=== PATIENT | female | born 1970 | race Caucasian/White ===

== ENCOUNTER → 2020-04-05 11:33 | Outpatient (BNVA) | payer OTHER, SELFPAY | PROVIDERS: Family Provider Nurse Practitioner Family; PCP Nurse Practitioner Family; Visit Provider Registered Nurse | DX: Z20.828 Contact with and (suspected) exposure to other viral communicable diseases (principal) | CPT/HCPCS: 87635 ==

== ENCOUNTER 2020-07-09 11:26 | Outpatient (CLI) | payer OTHER, SELFPAY ==
--- NOTE | 2020-07-09 11:37 | MM_ITS ---
WS: [id number] BILATERAL SCREENING DIGITAL MAMMOGRAM WITH CAD HISTORY: Z12.39 - Encounter for other screening for malignant neoplasm of breast COMPARISON: 02/09/2016 and 01/26/2015 Bilateral CC and MLO views submitted. Computer aided detection analyzed. Breast composition: There are scattered areas of fibroglandular density. No suspicious masses, microc alcifications or architectural distortion. MM/[place] [id number] IMPRESSION: BI-RADS: 1-Negative FOLLOW UP: 1 Year Follow-up
== END 2020-07-09 11:27 | disposition home or self-care (01) ==
PROVIDERS: PCP Registered Nurse; Visit Provider Nurse Practitioner Women's Health
DX: Z12.31 Encounter for screening mammogram for malignant neoplasm of breast (principal); Z01.419 Encounter for gynecological examination (general) (routine) without abnormal findings
CPT/HCPCS: 77067; 88175

== ENCOUNTER 2020-12-24 09:29 | Outpatient (CLI) | payer OTHER, SELFPAY ==
--- NOTE | 2020-12-24 09:45 | CT_ITS ---
WS: [id number] CT HEAD TECHNIQUE: Noncontrast CT of the head obtained from the skullbase to the vertex. CLINICAL INFORMATION: R51.9 - Headache, unspecified COMPARISON: None. DLP: [address] scans at [facility] use at least one of these dose optimization techniques: automat ed exposure control; mA and/or kV adjustment per patient size (includes targeted exams where dose is matched to clinical indication); or iterative reconstruction. FINDINGS: No evidence of intracranial hemorrhage or mass effect. Ventricular system and basal cisterns are fisher nt. No extra-axial fluid collections. No evidence of mass or mass effect. Normal villagomez-white different iation. Paranasal sinuses and mastoid air cells are well aerated. Small amount of fluid in the left dependent sphenoid sinus. Normal visualized soft tissues. CT/CT head wo con* [id number] IMPRESSION: 1. No evidence of intracranial hemorrhage or mass effect. 2. Normal villagomez-white differentiation. 3. No acute intracranial findings.
== END 2020-12-24 09:30 | disposition home or self-care (01) ==
LOC: RADWPI 09:30
PROVIDERS: PCP Registered Nurse; Visit Provider Registered Nurse
DX: R51.9 Headache, unspecified (principal)
CPT/HCPCS: 70450

== ENCOUNTER → 2021-02-17 08:42 | Outpatient (BNVA) | payer OTHER, SELFPAY | PROVIDERS: PCP Registered Nurse; Visit Provider Specialist | DX: G43.711 Chronic migraine without aura, intractable, with status migrainosus (principal); M54.81 Occipital neuralgia | CPT/HCPCS: 64405; 64450; 99204; J1030; J3490 ==

== ENCOUNTER 2021-11-01 09:17 | Outpatient (CLI) | payer OTHER, SELFPAY ==
--- NOTE | 2021-11-01 09:29 | MM_ITS ---
WS: [id number] SCREENING 3D TOMOSYNTHESIS DIGITAL MAMMOGRAM WITH CAD HISTORY: SCREENING COMPARISON: 07/09/2020, 02/09/2016 and 01/26/2015 Bilateral CC and MLO views submitted. Computer aided detection analyzed. Breast composition: The breasts are heterogeneously dense, which may obscure small masses. Asymmetry and increasing distortion seen posteriorly LEFT CC central to the nipple, slice 43. On the lateral pr ojection this is just above the nipple line. There may be a few calcifications. This area is slightly more prominent on the CC projection as compared to the prior study. MM/[place] [id number] IMPRESSION: BI-RADS: 0-Incomplete: Need additional imaging evaluation FOLLOW UP: Need Additional Imaging LEFT breast: Spot compression views (CC and MLO). True ML. Ultrasound to follow if abnormality persists.
== END 2021-11-01 09:18 | disposition home or self-care (01) ==
PROVIDERS: PCP Registered Nurse; Visit Provider Registered Nurse
DX: Z12.31 Encounter for screening mammogram for malignant neoplasm of breast (principal)
CPT/HCPCS: 77063; 77067

== ENCOUNTER → 2021-11-10 09:38 | Outpatient (BNVA) | payer OTHER, SELFPAY | PROVIDERS: PCP Registered Nurse; Visit Provider Registered Nurse | DX: I10 Essential (primary) hypertension (principal); E78.5 Hyperlipidemia, unspecified; F41.8 Other specified anxiety disorders; Z12.11 Encounter for screening for malignant neoplasm of colon; Z00.00 Encounter for general adult medical examination without abnormal findings | CPT/HCPCS: 80053; 80061; 82306; 82607; 84443; 85007; 85025 ==

== ENCOUNTER 2021-11-23 14:35 | Outpatient (CLI) | payer OTHER, SELFPAY ==
--- NOTE | 2021-11-23 14:44 | MM_ITS ---
WS: [id number] ADDITIONAL VIEWS LEFT MAMMOGRAM with tomosynthesis. LEFT BREAST ULTRASOUND HISTORY: Follow up screening mammogram. COMPARISON: 11/01/2021, 07/09/2020 LEFT MAMMOGRAM: Spot compression views and true ML with tomosynthesis and sympathetic mammography. Asymmetry persists in the posterior central LEFT breast near 12:00. Nearly completely resolves with a dditional imaging, probably benign.. Will ultrasound this area. LEFT BREAST ULTRASOUND 2-D and color Doppler imaging submitted. Ultrasound directed LEFT breast from 11-1 o'clock. No abnormality is identified. No shadowing or mass . MM/[place] [id number] IMPRESSION: BI-RADS: 2-Benign FOLLOW UP: 1 Year Follow-up
== END 2021-11-23 14:36 | disposition home or self-care (01) ==
LOC: RAD 14:37
PROVIDERS: PCP Registered Nurse; Visit Provider Registered Nurse
DX: R92.8 Other abnormal and inconclusive findings on diagnostic imaging of breast (principal)
CPT/HCPCS: 76642; 77061

== ENCOUNTER → 2021-11-24 11:42 | Outpatient (BNVA) | payer OTHER, SELFPAY | PROVIDERS: PCP Registered Nurse; Visit Provider Registered Nurse | DX: D70.9 Neutropenia, unspecified (principal) | CPT/HCPCS: 85007; 85027 ==

== ENCOUNTER → 2021-11-30 09:15 | Outpatient (BNVA) | payer OTHER, SELFPAY | PROVIDERS: PCP Registered Nurse; Visit Provider Registered Nurse | DX: N95.1 Menopausal and female climacteric states (principal); I10 Essential (primary) hypertension; M54.81 Occipital neuralgia; D70.9 Neutropenia, unspecified | CPT/HCPCS: 85007; 85027; 85651; 86141; 87798 ==

== ENCOUNTER 2022-01-23 09:10 | Outpatient (CLI) | payer OTHER, SELFPAY ==
--- NOTE | 2022-01-23 09:15 | US_ITS ---
WS: [id number] ULTRASOUND SOFT TISSUES LEFT thorax. HISTORY: R22.2 - Localized swelling, mass and lump, trunk COMPARISON: None available. TECHNIQUE: 2-D and color Doppler imaging is submitted. Patient directed scourer to the palpable mass. There is an ovoid homogeneous hypoechoic mass in the LEFT shoulder as directed by the patient measuri ng 2.6 x 1.0 x 2.0 cm. Nonvascular nonaggressive appearing. US/US chest [id number] IMPRESSION: Soft tissue mass adjacent to the LEFT shoulder measures 2.6 x 1.0 x 2.0 cm. Mos t consistent with a lipoma.
== END 2022-01-23 09:11 | disposition home or self-care (01) ==
LOC: RAD 09:10
PROVIDERS: PCP Registered Nurse; Visit Provider Nurse Practitioner Women's Health
DX: R22.2 Localized swelling, mass and lump, trunk (principal)
CPT/HCPCS: 76604

== ENCOUNTER 2022-03-02 07:59 | Day surgery (SDC) | payer OTHER, SELFPAY ==
[2022-02-28 13:30] VITALS: BMI 30.9
[2022-03-02 08:13] VITALS: BP 126/76; PULSE 77; RESP 18; TEMP 36.2; O2SAT 97
[2022-03-02] MEDS: sodium chloride 0.9% 1,000 ML 30 ML IV (08:22)
--- NOTE | 2022-03-02 08:33 | W.PM.OPSFHP ---
Same Day Surgery H&P Indication for Procedure/HPI DATE OF PROCEDURE: March 02, 2022 CHIEF COMPLAINT/INDICATIONFOR SURGICAL PROCEDURE: Screening colonoscopy PREOP DIAGNOSIS: Screening colonoscopy PLANNED PROCEDURE: Operation Date: 03/02/22 10:00 Proposed Procedures p Colonoscopy 62700/z12.11(Not Applicable) - Angel Bruno MD This is a pleasant 51 years old female patient. Had a colonoscopy 15 years ago and was within normal limits. Denies bleeding per rectum or history of colon cancer. She is referred to my practice for screening colonoscopy. ROS All systems have been reviewed negative except as for the above or per problem list. Medications/Allergies* Home Medications Medication Instructions Recorded Confirmed Type cetirizine 10 mg capsule (Zyrtec) 10 mg PO DAILY PRN Allergy Symptoms 11/10/21 03/02/22 History Allergies/Adverse Reactions Allergy/AdvReac Type Severity Reaction Status Date / Time atorvastatin Allergy Mild hives Verified 03/02/22 09:06 Penicillins Allergy Mild hives Verified 03/02/22 09:06 Sulfa (Sulfonamide Allergy Mild hives Verified 03/02/22 09:06 Antibiotics) Current Medications: Generic Name Dose Route Start Last Admin Trade Name Freq PRN Reason Stop Dose Admin Sodium Chloride 1,000 mls @ 30 mls/hr 03/02/22 08:15 03/02/22 08:22 Sodium Chloride 0.9% IV 03/03/22 08:14 30 mls/hr .Q24H RIGOBERTO Administration Pertinent History/Comorbid Conditions* Medical History (Updated 02/21/22 @ 13:00 by DIDI Tavera) Depression with anxiety Essential hypertension No pertinent past medical history neghx: dm,thyroid,dvt/pe Seasonal allergies Surgical History (Updated 07/09/20 @ 09:17 by Blessing Pierce APN, WHNP) History of surgery on wrist (~1991) R wrist-- tendon release Hx of tubal ligation Family History (Updated 01/05/22 @ 14:16 by Gill Aguayo) Ovarian cancer Mother dx age 40's Heart disease Mother Hypercholesteremia Mother Breast cancer Family/Other Paternal Aunt ---- dx age 60s Cousin Paternal x 2--- dx age 20s and unknown Stroke Brother Denies family history of Colon cancer Diabetes Hypertension Uterine cancer Thyroid disease Social History Smoking and tobacco status: never smoked Alcohol intake: never Adopted: No Caregiver/support person: No Lives independently: No Household members: spouse Marital status: service: No Current occupational status: employed Sexually active: Yes Current gender identity: Female Pertinent Exam Findings alert, oriented x 3, clear to auscultation bilaterally, regular rate & rhythm and procedure specific exam findings (Abdominal examination nontender nondistended soft) Recommendations Surgery/Procedure today (Colonoscopy with possible biopsy) Other Plans: Plan of care; After thorough history and physical examination and reviewing the chart, plan to perform screening colonoscopy. I discussed with the patient in details the risks,benefits,alternatives and indications.The risk of aspiration, bleeding, soft tissue injury, perforation of the colon and other potential concomitant complications were explained to the patient in details,also the potential need for Laproscoy/Laparotomy to repair any related complications including but not limited to colectomy and or Closotomy.The patient understood this well and did agree to proceed. Rationale was carefully and clearly discussed with the patient.Appropriate informed consent have been reviewed and signed All questions have been answered and all concerns have been addressed to patient's satisfaction. Verbal and written Instructions were given to the patient for colonoscopy prep Coding Level of Care Code Acute Foreclosure Specialist for Mayo Jimenez
--- NOTE | 2022-03-02 08:59 | ANES.PREANE2 ---
Pre-Anesthetic Assessment Height/Weight: Height 1.63 m Weight 81.647 kg Temp Pulse Resp BP Pulse Ox O2 Del Method 97.1 F L 77 18 126/76 97 03/02/22 08:13 03/02/22 08:13 03/02/22 08:13 03/02/22 08:13 03/02/22 08:13 03/02/22 08:13 Preop Diagnosis: Screening colonoscopy Operation Date: 03/02/22 10:00 Proposed Procedures p Colonoscopy 37751/z12.11(Not Applicable) - Angel Bruno MD Familial anesthetic complications: None Was Beta Kirstie taken within 24 hours: N/A Was Clonidine taken within 24 hours: N/A Last intake: Intake Last Liquid Date 03/01/22 Last Liquid Time 22:30 Last Solid Date 02/28/22 Last Solid Time 19:00 Social No alcohol and No tobacco Exam alert, oriented x 3, clear to auscultation bilaterally and regular rate & rhythm Airway Submandibular: within normal limits Cervical ROM: within normal limits Mallampati: Class I Dentition: full History/ROS No significant complaints Pulmonary None reported CV/HEM Hypertension Dyspareunia Hepatic None reported GI None reported Metabolic Hyperlipidemia [facility] None reported Neuropsych Anxiety and Depression Occipital neuralgia Anesthetic Plan ASA status: 2 Anesthesia: Anesthesia Evaluation, General and MAC Other: I discussed with the patient risks, goals, and benefits of MAC and general anesthesia. We discussed spectrum of MAC anesthesia including conversion to general as well as possibility of recall of intraoperative stimuli including discomfort/pain. Patient agrees to proceed with MAC. Risk of > 500 ml blood loss (7ml/kg in children): No Medications/Allergies Home Medications Medication Instructions Recorded Confirmed Last Taken Type bupropion HCl 150 mg tablet,12 hr See Rx Instructions .Route 03/08/21 03/02/22 03/01/22 Rx sustained-release .COMPLEX #180 tabs pseudoephedrine HCl 30 mg tablet 30 mg PO BID 7 days #14 tabs 10/10/21 03/02/22 03/01/22 Rx (Sudafed) cetirizine 10 mg capsule (Zyrtec) 10 mg PO DAILY PRN Allergy Symptoms 11/10/21 03/02/22 03/01/22 History conjugated estrogens 0.625 mg/gram 0.3125 mg vaginal .twice weekly 07/01/2003/02/22 02/27/22 Rx vaginal cream (Premarin) #30 grams estradiol 0.5 mg tablet 0.5 mg PO QDAY #90 tabs 01/05/22 03/02/22 03/01/22 Rx medroxyprogesterone 2.5 mg tablet 2.5 mg PO DAILY #90 tabs 01/05/22 03/02/22 03/01/22 Rx (Provera) galcanezumab-gnlm 120 mg/mL 120 mg SUBCUT ONCE #1 mL 02/01/22 03/02/22 02/16/22 Rx subcutaneous pen injector (Emgality Pen) citalopram 20 mg tablet See Rx Instructions .Route 02/10/22 03/02/22 03/01/22 Rx .COMPLEX #180 tabs montelukast 10 mg tablet See Rx Instructions .Route 02/10/22 03/02/22 03/01/22 Rx .COMPLEX #90 tabs Allergies Allergy/AdvReac Type Severity Reaction Status Date / Time atorvastatin Allergy Mild hives Verified 03/02/22 08:11 Penicillins Allergy Mild hives Verified 03/02/22 08:11 Sulfa (Sulfonamide Allergy Mild hives Verified 03/02/22 08:11 Antibiotics) Current Medications Generic Name Dose Route Start Last Admin Trade Name Freq PRN Reason Stop Dose Admin Sodium Chloride 1,000 mls @ 30 mls/hr 03/02/22 08:15 03/02/22 08:22 Sodium Chloride 0.9% IV 03/03/22 08:14 30 mls/hr .Q24H RIGOBERTO Administration PFSH Anesthesia Medical History Depression with anxiety Essential hypertension No pertinent past medical history neghx: dm,thyroid,dvt/pe Seasonal allergies Surgical History History of surgery on wrist (~1991) R wrist-- tendon release Hx of tubal ligation Family History Mother Heart disease Ovarian cancer dx age 40's Hypercholesteremia Family/Other Breast cancer Paternal Aunt ---- dx age 60s Cousin Paternal x 2--- dx age 20s and unknown Brother Stroke Denies family history of Colon cancer Diabetes Hypertension Uterine cancer Thyroid disease Social History Smoking and tobacco status: never smoked Alcohol intake: never Adopted: No Caregiver/support person: No Lives independently: No Household members: spouse Marital status: service: No Current occupational status: employed Sexually active: Yes Current gender identity: Female Data Anesthesia Cardiac Studies: No Data to Display
[2022-03-02 09:49] VITALS: BP 91/57; PULSE 68; RESP 12; TEMP 36.6; O2SAT 98
[2022-03-02 09:59] VITALS: BP 95/61; PULSE 66; RESP 16; O2SAT 98
--- NOTE | 2022-03-02 15:13 | ANE.PACU2 ---
Inpatient post-anesthesia follow up: Airway intact: Yes Vital signs: Temperature 97.8 F Pulse Rate 66 Respiratory Rate 16 Blood Pressure 95/61 Pulse Oximetry 98 Oxygen Delivery Me thod Room Air Oxygen Flow Rate Fraction of Inspir ed Oxygen Hydration adequate: Yes Nausea and vomiting: No Pain level: 1 Mental status: Baseline
== END 2022-03-02 10:13 | disposition home or self-care (01) ==
PROVIDERS: PCP Registered Nurse; Visit Provider Surgery
PROC: 0DJD8ZZ Inspection of Lower Intestinal Tract, Via Natural or Artificial Opening Endoscopic (ICD-10-PCS; CPT 45378; principal; 2022-03-02 10:00)
DX: Z12.11 Encounter for screening for malignant neoplasm of colon (principal); I10 Essential (primary) hypertension; Z88.0 Allergy status to penicillin; Z88.2 Allergy status to sulfonamides
CPT/HCPCS: 45378; J2704; J7030

== ENCOUNTER → 2022-12-11 08:51 | Outpatient (BNVA) | payer OTHER, SELFPAY | PROVIDERS: PCP Family Medicine; Visit Provider Family Medicine | DX: F41.8 Other specified anxiety disorders (principal); M19.041 Primary osteoarthritis, right hand; M19.042 Primary osteoarthritis, left hand; I10 Essential (primary) hypertension; Z12.31 Encounter for screening mammogram for malignant neoplasm of breast; G47.10 Hypersomnia, unspecified; Z13.6 Encounter for screening for cardiovascular disorders | CPT/HCPCS: 80053; 80061; 84443; 85025 ==

== ENCOUNTER → 2022-12-18 11:15 | Outpatient (BNVA) | payer OTHER, SELFPAY | PROVIDERS: PCP Family Medicine; Visit Provider Family Medicine | DX: R79.89 Other specified abnormal findings of blood chemistry (principal); E03.9 Hypothyroidism, unspecified | CPT/HCPCS: 84436 ==

== ENCOUNTER 2023-01-08 08:49 | Outpatient (CLI) | payer OTHER, SELFPAY ==
--- NOTE | 2023-01-08 08:57 | MM_ITS ---
WS: [id number] BILATERAL SCREENING DIGITAL TOMOSYNTHESIS MAMMOGRAM WITH CAD HISTORY: screening mammogram COMPARISON: 11/23/2021, 11/01/2021 and 07/09/2020 Bilateral CC and MLO views with tomosynthesis and synthetic mammography submitted. Computer aided det ection analyzed. Breast composition: There are scattered areas of fibroglandular density. No suspicious masses, microc alcifications or architectural distortion. MM/[place] [id number] IMPRESSION: BI-RADS: 1-Negative FOLLOW UP: 1 Year Follow-up
== END 2023-01-08 08:50 | disposition home or self-care (01) ==
LOC: RAD 08:51
PROVIDERS: PCP Family Medicine; Visit Provider Family Medicine
DX: Z12.31 Encounter for screening mammogram for malignant neoplasm of breast (principal); I10 Essential (primary) hypertension
CPT/HCPCS: 77063; 77067; 80048; 80053; 80061; 84443; 85025

== ENCOUNTER 2023-01-15 09:00 | Outpatient (CLI) | payer OTHER, SELFPAY | END 2023-01-15 09:01 | disposition home or self-care (01) | LOC: SLEEP 01-16 11:12 | PROVIDERS: PCP Family Medicine; Visit Provider Family Medicine | DX: G47.10 Hypersomnia, unspecified (principal); G47.33 Obstructive sleep apnea (adult) (pediatric) | CPT/HCPCS: G0399 ==

== ENCOUNTER → 2023-02-14 08:20 | Outpatient (BNVA) | payer OTHER, SELFPAY | PROVIDERS: PCP Family Medicine; Visit Provider Family Medicine | DX: M65.4 Radial styloid tenosynovitis [de Quervain] (principal); E78.5 Hyperlipidemia, unspecified; E03.9 Hypothyroidism, unspecified; I10 Essential (primary) hypertension | CPT/HCPCS: 84439; 84443 ==

== ENCOUNTER → 2023-09-06 08:59 | Outpatient (BNVA) | payer OTHER, SELFPAY | PROVIDERS: PCP Family Medicine; Visit Provider Family Medicine | DX: E78.5 Hyperlipidemia, unspecified (principal); E03.9 Hypothyroidism, unspecified | CPT/HCPCS: 80053; 80061; 84443 ==

== ENCOUNTER → 2023-11-13 11:57 | Outpatient (BNVA) | payer OTHER, SELFPAY | PROVIDERS: PCP Family Medicine; Visit Provider Nurse Practitioner Women's Health | DX: N95.0 Postmenopausal bleeding (principal) | CPT/HCPCS: 76830 ==

== ENCOUNTER → 2024-02-26 15:52 | Outpatient (BNVA) | payer OTHER, SELFPAY | PROVIDERS: PCP Family Medicine; Visit Provider Nurse Practitioner Women's Health | DX: Z01.419 Encounter for gynecological examination (general) (routine) without abnormal findings (principal) | CPT/HCPCS: 87624 ==

== ENCOUNTER 2024-03-19 08:51 | Outpatient (CLI) | payer OTHER, SELFPAY ==
--- NOTE | 2024-03-19 08:58 | MM_ITS ---
WS: [id number] BILATERAL SCREENING DIGITAL TOMOSYNTHESIS MAMMOGRAM WITH CAD HISTORY: Z12.39 - Encounter for other screening for malignant neop... COMPARISON: 01/08/2023, 11/23/2021 and 11/01/2021 Bilateral CC and MLO views with tomosynthesis and synthetic mammography submitted. Computer aided det ection analyzed. Breast composition: There are scattered areas of fibroglandular density. No suspicious masses, microc alcifications or architectural distortion. Asymmetries are stable and within each breast. MM/MM [facility] tomosynthesis [id number] IMPRESSION: BI-RADS: 2 - Benign. FOLLOW UP: 1 Year Follow-up
== END 2024-03-19 08:52 | disposition home or self-care (01) ==
PROVIDERS: PCP Family Medicine; Visit Provider Family Medicine
DX: Z12.31 Encounter for screening mammogram for malignant neoplasm of breast (principal); R92.323 Mammographic fibroglandular density, bilateral breasts; N64.89 Other specified disorders of breast
CPT/HCPCS: 77063; 77067

== ENCOUNTER → 2024-04-23 11:18 | Outpatient (BNVA) | payer OTHER, SELFPAY | PROVIDERS: PCP Family Medicine; Visit Provider Family Medicine | DX: I10 Essential (primary) hypertension (principal); E78.5 Hyperlipidemia, unspecified; E03.9 Hypothyroidism, unspecified | CPT/HCPCS: 80053; 80061; 84443 ==

== ENCOUNTER 2024-05-13 09:37 | Day surgery (SDC) | payer OTHER, SELFPAY ==
[2024-05-05 09:41] LABS: Basophils # 0.1 10^3/uL (0.0-0.1); Basophils % 1.6 %; Eosinophils # 0.2 10^3/uL (0.0-0.8); Eosinophils % 2.6 %; Hematocrit 42.9 % (36-47); Lymphocytes # 2.8 10^3/uL (0.8-4.8); Lymphocytes % 40.2 %; Mean Corpuscular HGB Conc 33.3 g/dL (30-55); Mean Corpuscular Hemoglobin 31.7 pg (27-33); Mean Corpuscular Volume 95.1 fl (85-98); Mean Platelet Volume 9.5 fL (7.4-10.4); Monocytes # 0.5 10^3/uL (0.2-0.9); Monocytes % 6.5 %; Neutrophils # 3.37 10^3/uL (1.8-7.7); Nucleated Red Blood Cells % 0 %; Platelet Count 259 10^3/cmm (157-399); Red Blood Count 4.51 10^6/uL (3.85-5.65); White Blood Count 6.89 10^3/uL (3.29-11.43)
--- NOTE | 2024-05-05 09:41 | P.ANESASSM_ITS ---
Pre-Anesthetic Assessment Height/Weight: Height 1.63 m Preop Diagnosis: Postmenopausal bleeding, endometrial polyp Operation Date: 05/13/24 11:25 Proposed Procedures p Hysteroscopy w/ Myosure 99328,96801,N95.0, N84.0(Not Applicable) - Sridhar De La Garza MD s Dilation And Curettage (D&C)(Not Applicable) - Sridhar De La Garza MD Familial anesthetic complications: None Social No alcohol and No tobacco Exam alert, oriented x 3, clear to auscultation bilaterally and regular rate & rhythm Airway Mallampati: Class I Dentition: full CV/HEM Hypertension Metabolic Thyroid Disease Anesthetic Plan ASA status: 2 Anesthesia: General Risk of > 500 ml blood loss (7ml/kg in children): No Medications/Allergies Home Medications Medication Instructions Recorded Confirmed Last Taken Type cetirizine 10 mg capsule (Zyrtec) 10 mg PO DAILY PRN Allergy Symptoms 11/10/21 05/05/24 05/05/24 History aripiprazole 2 mg tablet (Abilify) 2 mg PO DAILY #90 tabs 12/09/23 05/05/24 05/05/24 Rx citalopram 40 mg tablet 40 mg PO DAILY #90 tabs 12/09/23 05/05/24 05/05/24 Rx hydrochlorothiazide 25 mg tablet 25 mg PO QAM #90 tabs 12/09/23 05/05/24 05/05/24 Rx levothyroxine 25 mcg tablet 25 mcg PO DAILY #90 tabs 12/09/23 05/05/24 05/05/24 Rx meloxicam 15 mg tablet 15 mg PO DAILY #90 tabs 12/09/23 05/05/24 05/05/24 Rx estradiol 0.01% (0.1 mg/gram) 1 g vaginal .2-3 times weekly 02/26/24 05/05/24 05/05/24 Rx vaginal cream (Estrace) #42.5 grams estradiol 1 mg tablet (Estrace) 1 mg PO DAILY #90 tabs 02/26/24 05/05/24 05/05/24 Rx progesterone micronized 100 mg 200 mg (2 x 100 mg) PO BEDTIME 02/26/24 05/05/24 05/05/24 Rx capsule (Prometrium) #180 caps semaglutide 1 mg/dose (4 mg/3 mL) 1 mg SUBCUT Q7D 04/23/24 05/05/24 05/03/24 History subcutaneous pen injector ezetimibe 10 mg tablet (Zetia) 10 mg PO DAILY #90 tabs 04/29/24 05/05/24 05/05/24 Rx bupropion HCl 300 mg 24 hr tablet, 300 mg PO DAILY 05/05/24 05/05/24 05/05/24 History extended release Allergies Allergy/AdvReac Type Severity Reaction Status Date / Time atorvastatin Allergy Mild hives Verified 05/05/24 09:05 Penicillins Allergy Mild hives Verified 05/05/24 09:05 Sulfa (Sulfonamide Allergy Mild hives Verified 05/05/24 09:05 Antibiotics) topiramate AdvReac ADR-Muscle Verified 05/05/24 09:05 Pain PFS Anesthesia Medical History Osteoarthritis Major depressive disorder Dyslipidemia Hypothyroidism (acquired) Mass of chest wall, left lipoman Occipital neuralgia Essential hypertension Seasonal allergies Surgical History History of bilateral tubal ligation Normal colonoscopy History of surgery on wrist (~1991) R wrist-- tendon release Family History Mother Heart disease Hypercholesteremia Cancer cervical cancer Family/Other Breast cancer Paternal Aunt ---- dx age 60s Cousin Paternal x 2--- dx age 20s and unknown Brother Stroke Parkinson disease Sister Dementia, Onset Age: 65 Father Esophageal cancer Grandmother Diabetes Denies family history of Colon cancer Hypertension Uterine cancer Thyroid disease Social History Smoking and tobacco/nicotine status: never used tobacco/nicotine Alcohol intake: never Substance/Drug Use: never Household members: spouse Marital status: Current occupational status: employed Current occupation: tanning salon attendant Special britt needs: No Agree to transfusion: Yes Data Anesthesia 05/05/24 09:30 05/05/24 09:30 Cardiac Studies: 2 No Data to Display
[2024-05-05 09:48] LABS: Bilirubin Urine Negative (Negative); Blood Urine Non-haemolysed trace (Negative); Glucose Urine UA Negative (Normal); Ketones Urine Negative (Negative); Leukocyte Esterase Urine Trace (Negative); Nitrate Urine Negative (Negative); Protein Urine Negative (Negative); Urine Appearance Cloudy (CLEAR); Urine Color Yellow (Yellow); Urobilinogen Urine 0.2 mg/dL (Negative); pH Urine 5.5 (5-7)
[2024-05-05 09:53] LABS: Add Urine Microscopic? YES; Bacteria Urine None Seen /hpf; Hyaline Casts Urine 0-4 /lpf; RBC Urine 0-2 /hpf (0-2)
[2024-05-05 10:03] LABS: Add Urine Culture? No
[2024-05-05 10:06] LABS: Alanine Aminotransferase 27 U/L (0-33); Albumin Level 4.4 g/dL (3.5-5.2); Alkaline Phosphatase 44 U/L (35-105); Aspartate Amino Transferase 23 U/L (0-32); Blood Urea Nitrogen 18 mg/dL (6-20); Calcium 8.8 mg/dL (8.5-10.5); Carbon Dioxide 27 mmol/L (22-29); Chloride 104 mmol/L (98-107); Globulin 2.8 g/dL (1.3-4.6); Glomerular Filtration Rate 65.8 mL/min (90-130); Glucose 85 mg/dL (65-115); Osmolality Calculated 291 mOsm/kg (285-295); Sodium 140 mmol/L (136-145); Total Bilirubin 0.5 mg/dL (0.15-1.2); Total Protein 7.2 g/dL (6.6-8.7)
[2024-05-13] VITALS (11 sets, daily range): BP systolic 100–129; BP diastolic 64–86; PULSE 66–96; RESP 13–20; TEMP 36.5–36.8; O2SAT 93–98; BMI 32.2
--- NOTE | 2024-05-13 10:15 | W.PM.OPSUD ---
Surgery/Procedure H&P Update DATE OF PROCEDURE: May 13, 2024 DATE H&P PERFORMED: 05/05/24 H&P UPDATE INFORMATION: I have reviewed H&P completed within last 30 days, I have examined patient prior to procedure and No changes to prior documentation PREOP DIAGNOSIS: Postmenopausal bleeding, endometrial polyp PLANNED PROCEDURE: Operation Date: 05/13/24 11:25 Proposed Procedures p Hysteroscopy w/ Myosure 88189,85338,N95.0, N84.0(Not Applicable) - Sridhar De La Garza MD s Dilation And Curettage (D&C)(Not Applicable) - Sridhar De La Garza MD
[2024-05-13] MEDS: scopolamine 1.5 Patch 1 PATCH TRANSDERMA (10:17)
[2024-05-13] MEDS: sodium chloride 0.9% 500 ML IV (10:17)
[2024-05-13] MEDS: metroNIDAZOLE IV 500 MG/100 ML PREMIX 100 MG IV (10:24)
[2024-05-13 10:31] LABS: OR HCG Qualitative Urine Negative (Negative)
--- NOTE | 2024-05-13 10:35 | P.ANESUD_ITS ---
Pre-Anesthetic Update Pre-Anesthetic Assessment: Date of Surgery/Procedure: 05/13/24 Preop Sarah gnosis: Postmenopausal bleeding, endometrial polyp Proposed Procedure: Operation Date: 05/13/24 11:25 Proposed Procedures p Hysteroscopy w/ Myosure 79534,11217,N95.0, N84.0(Not Applicable) - Sridhar De La Garza MD s Dilation And Curettage (D&C)(Not Applicable) - Sridhar De La Garza MD Changes from Pre-Anesthetic Assessment: No changes since prior assessment. Denies any cardiac or pulmonary issues Plan for general anesthesia Last Intake: Intake Last Liquid Date 05/12/24 Last Liquid Time 20:00 Last Solid Date 05/12/24 Last Solid Time 18:00 Vitals: Temperature 97.7 F 05/13/24 09:54 Temperature Source Temporal Artery S can 05/13/24 09:54 Pulse Rate 66 05/13/24 09:54 Pulse Rhythm Regular 05/13/24 10:01 Pulse Strength 3+ Normal 05/13/24 10:01 Respiratory Rate 18 05/13/24 09:54 Blood Pressure 129/81 05/13/24 09:54 Blood Pressure Vanessa n 97 05/13/24 09:54 Pulse Oximetry 97 05/13/24 09:54 Oxygen Delivery Me thod Room Air 05/13/24 10:01 Cardiac Studies: No Data to Display
[2024-05-13] MEDS: sodium chloride 0.9% 1,000 ML 30 ML IV (11:06)
[2024-05-13] MEDS: VANCOMYCIN ADD-Vantage 1,000 MG in 0.9% NaCl ADD-Vantage 250 ML 250 MG IV (11:07)
--- NOTE | 2024-05-13 11:53 | PM.OP ---
Operative Report Date of procedure: May 13, 2024 Pre-op diagnosis: Postmenopausal bleeding Endometrial polyp Post-op diagnosis: Postmenopausal bleeding Procedure done: Hysteroscopy Dilation and curettage via MyoSure Surgeon: Sridhar De La Garza MD Estimated blood loss (mL): 5 IV fluids (mL): 400 Procedure: After informed consent, the risks included but were not limited to bleeding, infection, injury to internal organs. The patient was counseled on a possible laparotomy and on the potential need for hysterectomy. The patient expressed understanding of the risks involved, all questions were answered, and the patient consented to the procedure. The patient was taken to the operating room where general anesthesia was administered. She was placed in the dorsal lithotomy position and prepped and draped in sterile fashion. A time out procedure was performed. The patient was examined under anesthesia and found to have a normal uterus with normal adnexa. A sterile weight speculum was placed in the vagina. The uterus was then gently sounded to 7 cm, and the cervix was dilated. The 0 degrees MyoSure hysteroscope was advanced gently to the uterine fundus while visualizing the monitor. Survey of the uterine cavity showed: Atrophic endometrium, the fundus shows atrophic endometrium; left ostium was visualized, and lateral wall with atrophic endometrium; right ostium visualized, and lateral wall with atrophic in the mid; anterior and posterior harley are with atrophic endometrium; endocervical canal is normal. The MyoSure device was advanced and the direct visualization the endometrium was morcellated without complication. At the end of morcellation the fluid deficit was 125 mL and was estimated at approximately 100 mL were on the floor. There was minimal bleeding noted and the tenaculum removed with goad hemostasis noted. The patient tolerated the procedure well. The patient was taken to the recovery area in stable condition.
[2024-05-13] MEDS: lidocaine-epi 2% PF 1:200,000 20 mL SDV 10 ML XX (11:55)
--- NOTE | 2024-05-13 13:25 | ANE.PACU2 ---
Inpatient post-anesthesia follow up: Airway intact: Yes Vital signs: Temperature 98.2 F Pulse Rate 73 Respiratory Rate 17 Blood Pressure 103/68 Pulse Oximetry 97 Oxygen Delivery Me thod Room Air Oxygen Flow Rate Fraction of Inspir ed Oxygen Hydration adequate: Yes Nausea and vomiting: No Pain level: 1 Mental status: Baseline
== END 2024-05-13 13:25 | disposition home or self-care (01) ==
PROVIDERS: PCP Family Medicine; Visit Provider Obstetrics & Gynecology
PROC: 0UDB8ZZ Extraction of Endometrium, Via Natural or Artificial Opening Endoscopic (ICD-10-PCS; CPT 58558; principal; 2024-05-13 11:15)
PROC: (CPT 58120; 2024-05-13 11:15)
DX: N95.0 Postmenopausal bleeding (principal); I10 Essential (primary) hypertension; E78.5 Hyperlipidemia, unspecified; E03.9 Hypothyroidism, unspecified
CPT/HCPCS: 58558; 36415; 80053; 81001; 81025; 85025; 86850; 86900; 88305; J1100; J1885; J2250; J2405; J2704; J3010; J3370; J3490; J7030; J7040; J7050

== ENCOUNTER → 2024-12-18 10:14 | Outpatient (BNVA) | payer OTHER, SELFPAY | PROVIDERS: PCP Family Medicine; Visit Provider Family Medicine | DX: I10 Essential (primary) hypertension (principal); E03.9 Hypothyroidism, unspecified | CPT/HCPCS: 80053; 80061; 84439; 84443; 85025 ==

== ENCOUNTER 2025-05-12 07:56 | Outpatient (CLI) | payer OTHER, SELFPAY ==
--- NOTE | 2025-05-12 08:03 | MM_ITS ---
WS: [id number] BILATERAL 3D TOMOSYNTHESIS DIGITAL SCREENING MAMMOGRAPHY WITH CAD CLINICAL INFORMATION: SCREENING HISTORY: Screening mammogram. No current complaints. COMPARISON: 2023 TECHNIQUE: Bilateral CC and MLO views. FINDINGS: The breasts are composed of heterogeneous fibroglandular density tissue, which can limit the detection of small underlying mass lesions. No suspicious mass, asymmetry, calcifications, or architectural distortion. No evidence of malignancy. MM/MM scr tomosynthesis [id number] IMPRESSION: DENSITY: The breasts are heterogeneously dense, which may obscure small masses. BI-RADS: 1 - Negative FOLLOW UP: 1 Year Follow-up Recommend return to annual screening mammography.
== END 2025-05-12 07:57 | disposition home or self-care (01) ==
LOC: RAD 07:58
PROVIDERS: PCP Family Medicine; Visit Provider Nurse Practitioner Women's Health
DX: Z12.31 Encounter for screening mammogram for malignant neoplasm of breast (principal); R92.333 Mammographic heterogeneous density, bilateral breasts; R92.323 Mammographic fibroglandular density, bilateral breasts
CPT/HCPCS: 77063; 77067

== ENCOUNTER 2025-05-12 22:05 | Emergency (ER) | payer OTHER, SELFPAY ==
--- OUTSIDE RECORDS SUMMARY | 2025-05-12 22:16 | XMS_ITS | Encounter Summary ---
Author Organization [employer] [facility] Address [address] [place] [address] Care Team Providers Care Security Chief Museum Name Role Phone DIDI Perez Sr., Michael Dave Primary Care Pro vider Encounter Details Date Type Department Care Team (Late st Contact Info) Description 11/12/2017 Ancillary Orders [employer] [place] [address] [place] [id number] Allen Perez Sr., FNP [address] [place] [address] Right foot pain Social History Tobacco Use Types Packs/Day Years Used Date Smoking Tobacco: Never Assessed Comments Unknown Sex and Gender Information Value Date Recorded Sex Assigned at Not on file Legal Sex Female 9:24 AM CDT Gender Identity Not on file Sexual Orientation Not on file documented as of this encounter Plan of Treatment Not on file documented as of this encounter Results * XR FOOT 3+ VW RIGHT (11/12/2017 10:19 AM CDT) Anatomical Region Laterality Modality Ankle / Foot Computed Radiogr aphy 11/12/2017 10:1 9 AM CDT Impressions 11/12/2017 12:14 PM CDT IMPRESSION: Please see below. Exam: XR FOOT 3+ VW RIGHT Date/Time of Exam: 11/12/2017 10:19 AM Reason For Exam: Right foot pain. Comparison: None. FINDINGS: PA, lateral and oblique projections are unremarkable. Narrative Procedure Note Robbi Sprague, DO - 11/12/2017 IMPRESSION: Please see below. Exam: XR FOOT 3+ VW RIGHT Date/Time of Exam: 11/12/2017 10:19 AM Reason For Exam: Right foot pain. Comparison: None. FINDINGS: PA, lateral and oblique projections are unremarkable. us Allen Perez Sr., DIDI DIAGNOSTIC IMAGIN G ORDERABLES Final Result documented in this encounter Visit Diagnoses Diagnosis Right foot pain Pain in limb Right foot pain Pain in limb documented in this encounter Care Teams Security Chief Museum Relationship Specialty Start Date End Date Ana Townsend, DIDI [address] [place] [address] PCP - General NURSE PRACTITIONER 11/12/17 documented as of this encounter
--- OUTSIDE RECORDS SUMMARY | 2025-05-12 22:16 | XMS_ITS | Clinical Summary ---
Author Organization Alisha Hinojosa [facility] Address [address] [facility] [address] [place] [address] Phone Care Team Providers Care Crusher And Binder Operator Name Role Phone Ana Townsend, DIDI, Allen Pal Primary Care Pro vider Immunizations Immunization Administration Dates Next Due (PFIZER)(12 YR UP) COVID-19 VACCINE - EMERGENCY USE AUTHORIZATION, MRNA, [id number](PF) 30 MCG/0.3 ML IM SUSP 10/05/2020,09/13/2020 Social History Tobacco Use Types Packs/Day Years Used Date Smoking Tobacco: Never Assessed Comments Unknown Sex and Gender Information Value Date Recorded Sex Assigned at Not on file Legal Sex Female 9:24 AM CDT Gender Identity Not on file Sexual Orientation Not on file Plan of Treatment Health Maintenance Due Date Last Done Comments DTAP/TDAP/TD VACCINES (1 - Tdap) 1990 HEPATITIS B VACCINES (1 of 3 - 19+ 3-dose series) 1990 HPV/Cotest (21-29) 1992 CERVICAL CANCER SCREENING 2001 HPV/Cotest (30-65) 2001 PAP SMEAR 2001 BREAST CANCER SCREENING 2011 COLORECTAL SCREENING 2016 Colorectal Cancer Screening 2016 FIT-DNA Q 3 years 2016 FIT/FOBT Q 1 year 2016 Flex Sig/CT Colonography Q 5 years 2016 ZOSTER VACCINE (1 of 2) 2021 INFLUENZA VACCINE (#1) 2025 COVID-19 Vaccine ( season) 03/02/202511/2020, 09/13/2020 Insurance Care Teams Crusher And Binder Operator Relationship Specialty Start Date End Date Ana Townsend, DIDI Hutchins [address] [place], [place] [address] PCP - General NURSE PRACTITIONER 11/12/17
[2025-05-12 22:18] VITALS: BP 162/98; PULSE 91; RESP 16; TEMP 36.6; O2SAT 96; BMI 30.9
--- NOTE | 2025-05-12 22:27 | ECG_ITS ---
[facility] Test Date: 2025-05-12 Pat Name: Cyn Frank Department: Room: Gender: Female Tread Builder: : 1970 Requested By: Starr Brush Order Number: [id number] Reading MD: Measurements Intervals [place] Rate: 86 P: 72 TX: 156 QRS: 64 QRSD: 75 T: 61 QT: 353 QTc: 423 Interpretive Statements SINUS RHYTHM LOW QRS VOLTAGE IN PRECORDIAL LEADS [QRS DEFLECTION < 1.0 mV IN CHEST LEADS] No previous ECG available for comparison [id number]
[2025-05-12 23:04] VITALS: BP 160/104; PULSE 86; O2SAT 97
[2025-05-12 23:19] LABS: Hematocrit 40.1 % (36-47); Hemoglobin 13.60 g/dL (11.27-16.99); Mean Corpuscular HGB Conc 33.9 g/dL (30-55); Mean Corpuscular Hemoglobin 31.9 pg (27-33); Mean Corpuscular Volume 94.1 fl (85-98); Nucleated Red Blood Cells % 0 %; Platelet Count 273 10^3/cmm (157-399); Red Blood Count 4.26 10^6/uL (3.85-5.65); White Blood Count 11.68 10^3/uL (3.29-11.43)
[2025-05-12 23:22] LABS: Alanine Aminotransferase 521 U/L (0-33); Albumin Level 4.1 g/dL (3.5-5.2); Alkaline Phosphatase 140 U/L (35-105); Anion Gap 16.6 (5-19); Blood Urea Nitrogen 20 mg/dL (6-20); Calcium 9.1 mg/dL (8.5-10.5); Carbon Dioxide 24 mmol/L (22-29); Chloride 104 mmol/L (98-107); Creatinine Clr Calc Pharmacy 81.1288; Globulin 2.9 g/dL (1.3-4.6); Glucose 122 mg/dL (65-115); Lipase 45 U/L (13-60); Osmolality Calculated 296 mOsm/kg (285-295); Potassium 3.6 mmol/L (3.5-5.1); Sodium 141 mmol/L (136-145); Total Protein 7.0 g/dL (6.6-8.7)
--- NOTE | 2025-05-12 23:28 | PC.NURSE ---
this nurse assumed pt care at 2310 from Shanell ALCAZAR.
[2025-05-12 23:31] LABS: Aspartate Amino Transferase 959 U/L (0-32)
[2025-05-12 23:43] VITALS: BP 148/94; PULSE 84; RESP 16; O2SAT 97
[2025-05-13] VITALS (14 sets, daily range): BP systolic 111–168; BP diastolic 62–99; PULSE 67–86; RESP 16–17; O2SAT 92–99
--- NOTE | 2025-05-13 | ED_ITS ---
Documented by User: Starr Brush MD 05/13/25 20:03 HPI - General Adult 2 General: Chief complaint: Abdominal Pain Stated complaint: Upper ADB Pains Time Seen by Provider: 05/12/25 22:41 History of Present Illness: 54-year-old female presents with a chief complaint of upper abdominal pain since 2:00 yesterday morning. Patient states pain woke her up out of sleep. She states it was burning and pressure-like in her epigastrium and then spontaneously improved. Patient states that after eating a donut today, pain has become worse. She has not had a fever. Patient denies shortness of breath, cough, hemoptysis, syncope or leg swelling. Patient reports feeling nauseated but has not vomited. She denies diarrhea, dysuria, blood in stool. Patient does not drink alcohol. She does not have any history of abdominal surgeries. Patient is not a smoker. She has a history of high blood pressure, thyroid disease, anxiety and depression. Related Data Home Medications ?Medication ?Instructions ?Recorded ?Confirmed calcium carbonate (Tums Extra 600 mg PO QID upset stom ach 05/13/25 05/13/25 Strength Smoothies) famotidine 20 mg tablet (Pepcid) 20 mg PO BID 05/13/25 05/13/25 simethicone 125 mg capsule (Gas-X 250 mg PO DAILY PRN gas 05/13/25 05/13/25 Extra Strength) Previous Rx's ?Medication ?Instructions ?Recorded citalopram 40 mg tablet 40 mg PO DAILY #90 tabs 10/30 09/23 aripiprazole 2 mg tablet 2 mg PO DAILY #90 tabs 12/18 ezetimibe 10 mg tablet (Zetia) 10 mg PO DAILY #90 tabs 12/22/24 levothyroxine 25 mcg tablet 25 mcg PO DAILY #90 tabs 0 12/22/24 bupropion HCl 300 mg 24 hr tablet, 300 mg PO DAILY #90 tabs 02/26/25 extended release estradiol 0.01% (0.1 mg/gram) 1 g vaginal .2-3 times w eekly 03/19/25 vaginal cream (Estrace) #42.5 grams estradiol 1 mg tablet 1 mg PO DAILY #90 tabs 04/24 progesterone micronized 200 mg 200 mg PO BEDTIME #90 c aps 04/24/25 capsule (Prometrium) Allergies Allergy/AdvReac Type Severity Reaction Status Date / Time atorvastatin Allergy Mild hives Verified 05/12/25 22:29 Penicillins Allergy Mild hives Verified 05/12/25 22:29 Sulfa (Sulfonamide Allergy Mild hives Verified 05/12/25 22:29 Antibiotics) topiramate AdvReac ADR-Muscle Verified 05/12/25 22:29 Pain PFSH ED 2 PFSH: Medical History (Updated 05/13/25 @ 12:00 by Refugio Schwartz DO) Osteoarthritis Major depressive disorder Dyslipidemia Hypothyroidism (acquired) Mass of chest wall, left lipoman Occipital neuralgia Essential hypertension Seasonal allergies Surgical History Status post hysteroscopy (~05/13/24) hysteroscopy D&C-- performed by [facility]. Benign pathology- benign endometrium History of bilateral tubal ligation Normal colonoscopy History of surgery on wrist (~1991) R wrist-- tendon release Family History Mother Heart disease Hypercholesteremia Cancer cervical cancer Family/Other Breast cancer Paternal Aunt ---- dx age 60s Cousin Paternal x 2--- dx age 20s and unknown Brother Stroke Parkinson disease Sister Dementia, Onset Age: 65 Father Esophageal cancer Grandmother Diabetes Denies family history of Colon cancer Hypertension Uterine cancer Thyroid disease Social History Smoking and tobacco/nicotine status: never used tobacco/nicotine Alcohol intake: never Substance/Drug Use: never Household members: spouse Marital status: Current occupational status: employed Current occupation: [employer] Special britt needs: No Agree to transfusion: Yes Physical Exam 2 Narrative: EXAM NARRATIVE: Vital signs were reviewed. Patient is alert and oriented. Patient is breathing comfortably, no increased WOB or accessory muscle use. SpO2 is above 95% on RA. Patient has clear lungs b/l, no rhonchi, wheezing or crackles. No hypotension or tachycardia. Abdomen is soft, nondistended but quite tender in the epigastrium and RUQ. +Galvez's sign. No CVA tenderness w/percussion of the flanks but this does worsen patient's pain in the epigastric region. Patient is moving all extremities, no deformity or gross injury. No lower extremity edema or asymmetry. Course 2 Vital Signs: Vital signs: Vital Signs Temperature 97.9 F 05/12/25 22:18 Pulse Rate 67 05/13/25 10:15 Respiratory Rate 17 05/13/25 05:30 Blood Pressure 125/92 05/13/25 10:15 Pulse Oximetry 97 05/13/25 10:15 Oxygen Delivery Me thod Room Air 05/13/25 09:49 MDM - General Adult Medical Decision Making 54-year-old female presents with a chief complaint of epigastric and right upper quadrant abdominal pain associated with nausea for approximately 24 hours, worsened with eating at home. Pain is nonexertional. Differential diagnosis includes, but is not limited to, pancreatitis, cholecystitis, gastroenteritis, appendicitis, urinary tract infection, pyelonephritis, nephrolithiasis, SBO, diverticulitis, other. On initial exam, patient is hemodynamically stable and nontoxic appearing. Patient was evaluated with CBC, CMP, lipase, UA and CT abd/pelvis. Patien twas treated w/Morphine and Zofran IV. Patient has a minimally elevated white blood cell count. Patient has normal kidney function. LFTs are significantly elevated. Lipase is wnl. CT shows: IMPRESSION: 1. Cholelithiasis. Dilated common bile duct measures 11 mm. No choledocholithiasis. Mild intrahepatic biliary ductal dilation. 2. Mildly dilated pancreatic duct. Consider MRCP for further evaluation. 3. Mild fecal retention, correlate for constipation. 4. Diverticulosis, without acute diverticulitis. No small bowel obstruction. No free air. Patient will need further work up with MRCP, not available in the ED at this time. Discussed with hopsitalist convention manager, Dr. Edwards, regarding admission. Admission declined, stating lack of GI coverage and ERCP if patient were to need subsequent procedure. Attempted transfer to multiple facilities overnight, including [facility] (accepted by Dr. Ye), [facility] (no capability/capacity), and [facility] (acccepted by Dr. Bolivar). Ordered MRCP and liver US for AM if patient is still here and has no bed yet. Care signed out to Dr. Schwartz pending MRCP and transfer to accepting facility. Care assumed at change of shift. MRCP was able to be done earlier this morning after assumed care of the patient. It shows intermittent obstructing distal common bile duct stones with signs of dilation of the pancreatic duct and intrahepatic ducts. Dr. Dash felt radiographically on the MRI she appears to have acute cholecystitis and is likely developing a ascending cholangitis. Blood cultures ordered started on Cipro and Flagyl due to allergy to penicillin she cannot take Zosyn. Will repeat CBC CMP lipase as well. Will contact receiving facility and update them on the MRCP and initiation of antibiotics. Lab Data 05/13/25 09:18 05/13/25 09:18 Radiology Impressions Abdomen/Pelvis CT 05/13/25 00:03 IMPRESSION: 1. Cholelithiasis. Dilated common bile duct measures 11 mm. No choledocholithiasis. Mild intrahepatic biliary ductal dilation. 2. Mildly dilated pancreatic duct. Consider MRCP for further evaluation. 3. Mild fecal retention, correlate for constipation. 4. Diverticulosis, without acute diverticulitis. No small bowel obstruction. No free air. Cholangiopancreatography MRI 05/13/25 04:57 Impression: 1. Acute cholecystitis with diffuse scattered gallbladder wall thickening and pericholecystic fluid. 2. Cholelithiasis. 3. Prominent dilatation of the intrahepatic and extrahepatic common bile duct measuring up to 11 mm at the pancreatic head. 4. Several small filling defects within the common bile duct suspicious for tiny calculi 5. Mild to moderate diffuse intrahepatic biliary ductal dilatation with mild pancreatic ductal dilatation suspicious for intermittent obstruction or recently passed calculi with developing ascending cholangitis. Mild periportal edema also visualized suspicious for ascending cholangitis 6. Pancreatic head appears normal Notified Refugio Schwartz MD at 05/13/2025 9:00 AM. Liver Ultrasound 05/13/25 04:57 IMPRESSION: 1. Abnormal gallbladder. Cholelithiasis. No gallbladder hydrops. There is a small amount of pericholecystic fluid and edema. 2. Dilated common bile duct to 1.1 cm. No choledocholithiasis identified by ultrasound. Evaluation of the distal common bile duct and pancreatic head recommended to exclude choledocholithiasis or pancreatic head lesion. 3. Mild intrahepatic duct dilatation. Laboratory Results WBC 6.22 10^3/uL (3.29-11.43) 05/13/25 09:18 RBC 4.24 10^6/uL (3.85-5.65) 05/13/25 09:18 Hgb 13.50 g/dL (11.27-16.99) 05/13/25 09:18 Hct 40.7 % (36-47) 05/13/25 09:18 MCV 96.0 fl (85-98) 05/13/25 09:18 MCH 31.8 pg (27-33) 05/13/25 09:18 MCHC 33.2 g/dL (30-55) 05/13/25 09:18 RDW 14.1 % (12.1-15.1) 05/13/25 09:18 Plt Count 252 10^3/cmm (157-399) 05/13/25 09:18 MPV 9.6 fL (7.4-10.4) 05/13/25 09:18 Neut % (Auto) 40.2 % 05/13/25 09:18 Lymph % (Auto) 40.2 % 05/13/25 09:18 Camp % (Auto) 13.2 % 05/13/25 09:18 Eos % (Auto) 4.8 % 05/13/25 09:18 Baso % (Auto) 1.4 % 05/13/25 09:18 Neut # (Auto) 2.50 10^3/uL (1.8-7.7) 05/13/25 09:18 Lymph # (Auto) 2.5 10^3/uL (0.8-4.8) 05/13/25 09:18 Camp # (Auto) 0.8 10^3/uL (0.2-0.9) 05/13/25 09:18 Eos # (Auto) 0.3 10^3/uL (0.0-0.8) 05/13/25 09:18 Baso # (Auto) 0.1 10^3/uL (0.0-0.1) 05/13/25 09:18 Nucleated RBC % (auto) 0 % 05/13/25 09:18 Nucleated RBCs # 0.0 /100WBC 05/13/25 09:18 Sodium 141 mmol/L (136-145) 05/13/25 09:18 Potassium 4.1 mmol/L (3.5-5.1) 05/13/25 09:18 Chloride 103 mmol/L (98-107) 05/13/25 09:18 Carbon Dioxide 28 mmol/L (22-29) 05/13/25 09:18 Anion Gap 14.1 (5-19) 05/13/25 09:18 BUN 16 mg/dL (6-20) 05/13/25 09:18 Creatinine 0.8 mg/dL (0.5-0.9) 05/13/25 09:18 GFR Calculation 75.0 mL/min (90-130) L 05/13/25 09:18 Glucose 89 mg/dL (65-115) 05/13/25 09:18 Calculated Osmolality 293 mOsm/kg (285-295) 05/13/25 09:18 Calcium 9.0 mg/dL (8.5-10.5) 05/13/25 09:18 Total Bilirubin 3.2 mg/dL (0.15-1.2) H 05/13/25 09:18 AST 1254 U/L (0-32) H 05/13/25 09:18 ALT 1019 U/L (0-33) H 05/13/25 09:18 Alkaline Phosphatase 184 U/L (35-105) H 05/13/25 09:18 Total Protein 7.0 g/dL (6.6-8.7) 05/13/25 09:18 Albumin 3.9 g/dL (3.5-5.2) 05/13/25 09:18 Globulin 3.1 g/dL (1.3-4.6) 05/13/25 09:18 Lipase 866 U/L (13-60) H 05/13/25 09:18 Urine Color Yellow (Yellow) 05/13/25 00:30 Urine Appearance Cloudy (CLEAR) A 05/13/25 00:30 Urine pH 7.5 (5-7) 05/13/25 00:30 Ur Specific [place] 1.038 (1.005-1.030) H 05/13/25 00:30 Urine Protein Negative (Negative) 05/13/25 00:30 Urine Glucose (UA) Negative (Normal) 05/13/25 00:30 Urine Ketones Negative (Negative) 05/13/25 00:30 Urine Blood Negative (Negative) 05/13/25 00:30 Urine Nitrate Negative (Negative) 05/13/25 00:30 Urine Bilirubin Negative (Negative) 05/13/25 00:30 Urine Urobilinogen 1.0 mg/dL (Negative) 05/13/25 00:30 Ur Leukocyte Esterase Negative (Negative) 05/13/25 00:30 Urine RBC 0-2 /hpf (0-2) 05/13/25 00:30 Urine WBC 0-5 /hpf (0-5) 05/13/25 00:30 Ur Squamous Epith Cells 0-5 /hpf (0-5) 05/13/25 00:30 Amorphous Sediment Not Reportable 05/13/25 00: Urine Bacteria None seen /hpf (NONE) 05/13/25 00:30 Hyaline Casts 0-4 /lpf H 05/13/25 00:30 All radiology interpretation(s) finalized by discharge EKG Data EKG 1: Interpretation: Patient has normal sinus rhythm with a heart rate of 86, normal axis, normal intervals, no evidence of ST segment elevation. Computer generated interpretation: Abdomen/Pelvis CT 05/13/25 00:03 IMPRESSION: 1. Cholelithiasis. Dilated common bile duct measures 11 mm. No choledocholithiasis. Mild intrahepatic biliary ductal dilation. 2. Mildly dilated pancreatic duct. Consider MRCP for further evaluation. 3. Mild fecal retention, correlate for constipation. 4. Diverticulosis, without acute diverticulitis. No small bowel obstruction. No free air. Cholangiopancreatography MRI 05/13/25 04:57 Impression: 1. Acute cholecystitis with diffuse scattered gallbladder wall thickening and pericholecystic fluid. 2. Cholelithiasis. 3. Prominent dilatation of the intrahepatic and extrahepatic common bile duct measuring up to 11 mm at the pancreatic head. 4. Several small filling defects within the common bile duct suspicious for tiny calculi 5. Mild to moderate diffuse intrahepatic biliary ductal dilatation with mild pancreatic ductal dilatation suspicious for intermittent obstruction or recently passed calculi with developing ascending cholangitis. Mild periportal edema also visualized suspicious for ascending cholangitis 6. Pancreatic head appears normal Notified Refugio Schwartz MD at 05/13/2025 9:00 AM. Liver Ultrasound 05/13/25 04:57 IMPRESSION: 1. Abnormal gallbladder. Cholelithiasis. No gallbladder hydrops. There is a small amount of pericholecystic fluid and edema. 2. Dilated common bile duct to 1.1 cm. No choledocholithiasis identified by ultrasound. Evaluation of the distal common bile duct and pancreatic head recommended to exclude choledocholithiasis or pancreatic head lesion. 3. Mild intrahepatic duct dilatation. Discharge Plan Discharge Patient Disposition: Xfer Short-Term Hosp Clinical Impression: Choledocholithiasis, Acute upper abdominal pain, Abnormal LFTs, Common bile duct dilatation, Pancreatic duct dilated, Acute cholecystitis, Ascending cholangitis Condition: Stable Referrals: Blessing Perez DO [Primary Care Provider, Family Practice] Patient Instructions: Abdominal Pain (ED) Print Language: Sammarinese Coding Level of Care Code ED Garland Machine Operator for Chg Fwd Documented by User: Refugio Schwartz DO 05/13/25 12:00 HPI - General Adult 2 General: Chief complaint: Abdominal Pain Stated complaint: Upper ADB Pains Time Seen by Provider: 05/12/25 22:41 Related Data Home Medications ?Medication ?Instructions ?Recorded ?Confirmed calcium carbonate (Tums Extra 600 mg PO QID upset stom ach 05/13/25 05/13/25 Strength Smoothies) famotidine 20 mg tablet (Pepcid) 20 mg PO BID 05/13/25 05/13/25 simethicone 125 mg capsule (Gas-X 250 mg PO DAILY PRN gas 05/13/25 05/13/25 Extra Strength) Previous Rx's ?Medication ?Instructions ?Recorded citalopram 40 mg tablet 40 mg PO DAILY #90 tabs 10/30 09/23 aripiprazole 2 mg tablet 2 mg PO DAILY #90 tabs 12/18 ezetimibe 10 mg tablet (Zetia) 10 mg PO DAILY #90 tabs 12/22/24 levothyroxine 25 mcg tablet 25 mcg PO DAILY #90 tabs 0 12/22/24 bupropion HCl 300 mg 24 hr tablet, 300 mg PO DAILY #90 tabs 02/26/25 extended release estradiol 0.01% (0.1 mg/gram) 1 g vaginal .2-3 times w regina 03/19/25 vaginal cream (Estrace) #42.5 grams estradiol 1 mg tablet 1 mg PO DAILY #90 tabs 10/24 /25 progesterone micronized 200 mg 200 mg PO BEDTIME #90 c aps 04/24/25 capsule (Prometrium) Allergies Allergy/AdvReac Type Severity Reaction Status Date / Time atorvastatin Allergy Mild hives Verified 05/12/25 22:29 Penicillins Allergy Mild hives Verified 05/12/25 22:29 Sulfa (Sulfonamide Allergy Mild hives Verified 05/12/25 22:29 Antibiotics) topiramate AdvReac ADR-Muscle Verified 05/12/25 22:29 Pain PFSH ED 2 PFSH: Medical History (Updated 05/13/25 @ 12:00 by Refugio Schwartz DO) Osteoarthritis Major depressive disorder Dyslipidemia Hypothyroidism (acquired) Mass of chest wall, left lipoman Occipital neuralgia Essential hypertension Seasonal allergies Surgical History Status post hysteroscopy (~05/13/24) hysteroscopy D&C-- performed by [facility]. Benign pathology- benign endometrium History of bilateral tubal ligation Normal colonoscopy History of surgery on wrist (~1991) R wrist-- tendon release Family History Mother Heart disease Hypercholesteremia Cancer cervical cancer Family/Other Breast cancer Paternal Aunt ---- dx age 60s Cousin Paternal x 2--- dx age 20s and unknown Brother Stroke Parkinson disease Sister Dementia, Onset Age: 65 Father Esophageal cancer Grandmother Diabetes Denies family history of Colon cancer Hypertension Uterine cancer Thyroid disease Social History Smoking and tobacco/nicotine status: never used tobacco/nicotine Alcohol intake: never Substance/Drug Use: never Household members: spouse Marital status: Current occupational status: employed Current occupation: consulting project director Special britt needs: No Agree to transfusion: Yes Course 2 Vital Signs: Vital signs: Vital Signs Temperature 97.9 F 05/12/25 22:18 Pulse Rate 67 05/13/25 10:15 Respiratory Rate 17 05/13/25 05:30 Blood Pressure 125/92 05/13/25 10:15 Pulse Oximetry 97 05/13/25 10:15 Oxygen Delivery Me thod Room Air 05/13/25 09:49 MDM - General Adult Medical Decision Making 54-year-old female presents with a chief complaint of epigastric and right upper quadrant abdominal pain associated with nausea for approximately 24 hours, worsened with eating at home. Pain is nonexertional. Differential diagnosis includes, but is not limited to, pancreatitis, cholecystitis, gastroenteritis, appendicitis, urinary tract infection, pyelonephritis, nephrolithiasis, SBO, diverticulitis, other. On initial exam, patient is hemodynamically stable and nontoxic appearing. Patient was evaluated with CBC, CMP, lipase, UA and CT abd/pelvis. Patien twas treated w/Morphine and Zofran IV. Patient has a minimally elevated white blood cell count. Patient has normal kidney function. LFTs are significantly elevated. Lipase is wnl. CT shows: IMPRESSION: 1. Cholelithiasis. Dilated common bile duct measures 11 mm. No choledocholithiasis. Mild intrahepatic biliary ductal dilation. 2. Mildly dilated pancreatic duct. Consider MRCP for further evaluation. 3. Mild fecal retention, correlate for constipation. 4. Diverticulosis, without acute diverticulitis. No small bowel obstruction. No free air. Care assumed at change of shift. MRCP was able to be done earlier this morning after assumed care of the patient. It shows intermittent obstructing distal common bile duct stones with signs of dilation of the pancreatic duct and intrahepatic ducts. Dr. Dash felt radiographically on the MRI she appears to have acute cholecystitis and is likely developing a ascending cholangitis. Blood cultures ordered started on Cipro and Flagyl due to allergy to penicillin she cannot take Zosyn. Will repeat CBC CMP lipase as well. Will contact receiving facility and update them on the MRCP and initiation of antibiotics. Lab Data 05/13/25 09:18 05/13/25 09:18 Radiology Impressions Abdomen/Pelvis CT 05/13/25 00:03 IMPRESSION: 1. Cholelithiasis. Dilated common bile duct measures 11 mm. No choledocholithiasis. Mild intrahepatic biliary ductal dilation. 2. Mildly dilated pancreatic duct. Consider MRCP for further evaluation. 3. Mild fecal retention, correlate for constipation. 4. Diverticulosis, without acute diverticulitis. No small bowel obstruction. No free air. Cholangiopancreatography MRI 05/13/25 04:57 Impression: 1. Acute cholecystitis with diffuse scattered gallbladder wall thickening and pericholecystic fluid. 2. Cholelithiasis. 3. Prominent dilatation of the intrahepatic and extrahepatic common bile duct measuring up to 11 mm at the pancreatic head. 4. Several small filling defects within the common bile duct suspicious for tiny calculi 5. Mild to moderate diffuse intrahepatic biliary ductal dilatation with mild pancreatic ductal dilatation suspicious for intermittent obstruction or recently passed calculi with developing ascending cholangitis. Mild periportal edema also visualized suspicious for ascending cholangitis 6. Pancreatic head appears normal Notified Refugio Schwartz MD at 05/13/2025 9:00 AM. Liver Ultrasound 05/13/25 04:57 IMPRESSION: 1. Abnormal gallbladder. Cholelithiasis. No gallbladder hydrops. There is a small amount of pericholecystic fluid and edema. 2. Dilated common bile duct to 1.1 cm. No choledocholithiasis identified by ultrasound. Evaluation of the distal common bile duct and pancreatic head recommended to exclude choledocholithiasis or pancreatic head lesion. 3. Mild intrahepatic duct dilatation. Laboratory Results WBC 6.22 10^3/uL (3.29-11.43) 05/13/25 09:18 RBC 4.24 10^6/uL (3.85-5.65) 05/13/25 09:18 Hgb 13.50 g/dL (11.27-16.99) 05/13/25 09:18 Hct 40.7 % (36-47) 05/13/25 09:18 MCV 96.0 fl (85-98) 05/13/25 09:18 MCH 31.8 pg (27-33) 05/13/25 09:18 MCHC 33.2 g/dL (30-55) 05/13/25 09:18 RDW 14.1 % (12.1-15.1) 05/13/25 09:18 Plt Count 252 10^3/cmm (157-399) 05/13/25 09:18 MPV 9.6 fL (7.4-10.4) 05/13/25 09:18 Neut % (Auto) 40.2 % 05/13/25 09:18 Lymph % (Auto) 40.2 % 05/13/25 09:18 Camp % (Auto) 13.2 % 05/13/25 09:18 Eos % (Auto) 4.8 % 05/13/25 09:18 Baso % (Auto) 1.4 % 05/13/25 09:18 Neut # (Auto) 2.50 10^3/uL (1.8-7.7) 05/13/25 09:18 Lymph # (Auto) 2.5 10^3/uL (0.8-4.8) 05/13/25 09:18 Camp # (Auto) 0.8 10^3/uL (0.2-0.9) 05/13/25 09:18 Eos # (Auto) 0.3 10^3/uL (0.0-0.8) 05/13/25 09:18 Baso # (Auto) 0.1 10^3/uL (0.0-0.1) 05/13/25 09:18 Nucleated RBC % (auto) 0 % 05/13/25 09:18 Nucleated RBCs # 0.0 /100WBC 05/13/25 09:18 Sodium 141 mmol/L (136-145) 05/13/25 09:18 Potassium 4.1 mmol/L (3.5-5.1) 05/13/25 09:18 Chloride 103 mmol/L (98-107) 05/13/25 09:18 Carbon Dioxide 28 mmol/L (22-29) 05/13/25 09:18 Anion Gap 14.1 (5-19) 05/13/25 09:18 BUN 16 mg/dL (6-20) 05/13/25 09:18 Creatinine 0.8 mg/dL (0.5-0.9) 05/13/25 09:18 GFR Calculation 75.0 mL/min (90-130) L 05/13/25 09:18 Glucose 89 mg/dL (65-115) 05/13/25 09:18 Calculated Osmolality 293 mOsm/kg (285-295) 05/13/25 09:18 Calcium 9.0 mg/dL (8.5-10.5) 05/13/25 09:18 Total Bilirubin 3.2 mg/dL (0.15-1.2) H 05/13/25 09:18 AST 1254 U/L (0-32) H 05/13/25 09:18 ALT 1019 U/L (0-33) H 05/13/25 09:18 Alkaline Phosphatase 184 U/L (35-105) H 05/13/25 09:18 Total Protein 7.0 g/dL (6.6-8.7) 05/13/25 09:18 Albumin 3.9 g/dL (3.5-5.2) 05/13/25 09:18 Globulin 3.1 g/dL (1.3-4.6) 05/13/25 09:18 Lipase 866 U/L (13-60) H 05/13/25 09:18 Urine Color Yellow (Yellow) 05/13/25 00:30 Urine Appearance Cloudy (CLEAR) A 05/13/25 00:30 Urine pH 7.5 (5-7) 05/13/25 00:30 Ur Specific [place] 1.038 (1.005-1.030) H 05/13/25 00:30 Urine Protein Negative (Negative) 05/13/25 00:30 Urine Glucose (UA) Negative (Normal) 05/13/25 00:30 Urine Ketones Negative (Negative) 05/13/25 00:30 Urine Blood Negative (Negative) 05/13/25 00:30 Urine Nitrate Negative (Negative) 05/13/25 00:30 Urine Bilirubin Negative (Negative) 05/13/25 00:30 Urine Urobilinogen 1.0 mg/dL (Negative) 05/13/25 00:30 Ur Leukocyte Esterase Negative (Negative) 05/13/25 00:30 Urine RBC 0-2 /hpf (0-2) 05/13/25 00:30 Urine WBC 0-5 /hpf (0-5) 05/13/25 00:30 Ur Squamous Epith Cells 0-5 /hpf (0-5) 05/13/25 00:30 Amorphous Sediment Not Reportable 05/13/25 00:30 Urine Bacteria None seen /hpf (NONE) 05/13/25 00:30 Hyaline Casts 0-4 /lpf H 05/13/25 00:30 EKG Data EKG 1: Computer generated interpretation: Abdomen/Pelvis CT 05/13/25 00:03 IMPRESSION: 1. Cholelithiasis. Dilated common bile duct measures 11 mm. No choledocholithiasis. Mild intrahepatic biliary ductal dilation. 2. Mildly dilated pancreatic duct. Consider MRCP for further evaluation. 3. Mild fecal retention, correlate for constipation. 4. Diverticulosis, without acute diverticulitis. No small bowel obstruction. No free air. Cholangiopancreatography MRI 05/13/25 04:57 Impression: 1. Acute cholecystitis with diffuse scattered gallbladder wall thickening and pericholecystic fluid. 2. Cholelithiasis. 3. Prominent dilatation of the intrahepatic and extrahepatic common bile duct measuring up to 11 mm at the pancreatic head. 4. Several small filling defects within the common bile duct suspicious for tiny calculi 5. Mild to moderate diffuse intrahepatic biliary ductal dilatation with mild pancreatic ductal dilatation suspicious for intermittent obstruction or recently passed calculi with developing ascending cholangitis. Mild periportal edema also visualized suspicious for ascending cholangitis 6. Pancreatic head appears normal Notified Refugio Schwartz MD at 05/13/2025 9:00 AM. Liver Ultrasound 05/13/25 04:57 IMPRESSION: 1. Abnormal gallbladder. Cholelithiasis. No gallbladder hydrops. There is a small amount of pericholecystic fluid and edema. 2. Dilated common bile duct to 1.1 cm. No choledocholithiasis identified by ultrasound. Evaluation of the distal common bile duct and pancreatic head recommended to exclude choledocholithiasis or pancreatic head lesion. 3. Mild intrahepatic duct dilatation. Discharge Plan Discharge Patient Disposition: Xfer Short-Term Hosp Clinical Impression: Choledocholithiasis, Acute upper abdominal pain, Abnormal LFTs, Common bile duct dilatation, Pancreatic duct dilated, Acute cholecystitis, Ascending cholangitis Condition: Stable Referrals: Blessing Perez DO [Primary Care Provider, Family Practice] Patient Instructions: Abdominal Pain (ED) Print Language: Sammarinese Coding Level of Care Code ED [place] Machine Operator for Mayo Jimenez
--- NOTE | 2025-05-13 00:03 | CTR_ITS ---
PROCEDURE INFORMATION: Exam: CT Abdomen And Pelvis With Contrast Exam date and time: 05/13/2025 12:10 AM Age: 54 years old Clinical indication: Abdominal pain; Prior surgery; Surgery date: 6+ months; Surgery type: Tubal; Additional info: Ruq/epigastic pain TECHNIQUE: Imaging protocol: Computed tomography of the abdomen and pelvis with contrast. Radiation optimization: All CT scans at this facility use at least one of these dose optimization techniques: automated exposure control; mA and/or kV adjustment per patient size (includes targeted exams where dose is matched to clinical indication); or iterative reconstruction. Contrast material: OMNI 350; Contrast volume: 100 ml; Contrast route: INTRAVENOUS (IV); COMPARISON: US transvaginal [id number] 11/13/2023 11:59 AM RADIATION DOSE METRICS: Total DLP (mGy-cm): 563.33 FINDINGS: Liver: Normal. No mass. Gallbladder and biliary ducts: Cholelithiasis. Dilated common bile duct measures 11 mm. No choledocholithiasis. Mild intrahepatic biliary ductal dilation. Pancreas: Mildly dilated pancreatic duct. Consider MRCP for further evaluation. Spleen: Normal. No splenomegaly. Adrenal glands: Normal. No mass. Kidneys and ureters: Normal. No hydronephrosis. Stomach and bowel: Mild fecal retention, correlate for constipation. Diverticulosis, without acute diverticulitis. No small bowel obstruction. No free air. Appendix: No evidence of appendicitis. Intraperitoneal space: See Stomach and bowel finding. Vasculature: Unremarkable. No abdominal aortic aneurysm. Lymph nodes: Unremarkable. No enlarged lymph nodes. Urinary bladder: Unremarkable as visualized. Reproductive: Unremarkable as visualized. Bones/joints: Unremarkable. No acute fracture. Soft tissues: Unremarkable. CT/CT abdomen pelvis w con* [id number] IMPRESSION: 1. Cholelithiasis. Dilated common bile duct measures 11 mm. No choledocholithiasis. Mild intrahepatic biliary ductal dilation. 2. Mildly dilated pancreatic duct. Consider MRCP for further evaluation. 3. Mild fecal retention, correlate for constipation. 4. Diverticulosis, without acute diverticulitis. No small bowel obstruction. No free air.
[2025-05-13] MEDS: iohexol 350 mg/mL 500 mL Btl (per mL) IV (00:14)
[2025-05-13] MEDS: morphine 4 mg/mL SDV 1 mL IVP (00:22)
[2025-05-13] MEDS: ondansetron 2 mg/ML SDV 2 mL 4 MG IVP (00:22)
[2025-05-13 00:37] LABS: Glucose Urine UA Negative (Normal); Nitrate Urine Negative (Negative)
[2025-05-13 00:41] LABS: Add Urine Microscopic? YES
[2025-05-13 00:43] LABS: Specific Gravity, Urine 1.038 (1.005-1.030)
--- NOTE | 2025-05-13 04:57 | MR_ITS ---
WS: [id number] MRI/MRCP OF THE ABDOMEN WITHOUT GADOLINIUM ENHANCEMENT TECHNIQUE: Coronal T2 Fase BH, Axial T2 Fase BH, Axial T2 FS BH, Zxial 3D Ordonez BH, Axial DWI BH, 2D MRCP Radial BH, 3D MRCP (Resp), and Axial 3D Dyn BH Post sequences. CLINICAL INFORMATION: RUQ pain, abnormal LFTs FINDINGS: Diffuse gallbladder wall thickening with pericholecystic fluid and gallbladder calculi compatible with acute cholecystitis. There is mild to moderate diffuse intrahepatic biliary ductal dilatation with prominent dilatation of the intrahepatic and extrahepatic common bile duct measuring up to 11 mm. Recommend correlation for ascending cholangitis considering clinical history. In addition mild periportal edema visualized on the axial T2 imaging also supportive of ascending cholangitis A few tiny filling defects within the common bile duct suspicious for small calculi. Mild dilatation of the pancreatic duct. No visualized pancreatic head mass. No visualized ampullary mass. No hydronephrosis in either kidney. Tiny esophageal hiatal hernia. MR/MR MRCP [id number] Impression: 1. Acute cholecystitis with diffuse scattered gallbladder wall thickening and pericholecystic fluid. 2. Cholelithiasis. 3. Prominent dilatation of the intrahepatic and extrahepatic common bile duct measuring up to 11 mm at the pancreatic head. 4. Several small filling defects within the common bile duct suspicious for ti ny calculi 5. Mild to moderate diffuse intrahepatic biliary ductal dilatation with mild p ancreatic ductal dilatation suspicious for intermittent obstruction or recently passed calculi with developing ascending cholangitis. Mild periportal edema al so visualized suspicious for ascending cholangitis 6. Pancreatic head appears normal Notified Refugio Schwartz MD at 05/13/2025 9:00 AM.
--- NOTE | 2025-05-13 04:57 | US_ITS ---
WS: [id number] RIGHT UPPER QUADRANT ULTRASOUND HISTORY: RUQ pain/abnormal LFTs COMPARISON: CT 05/13/2025 Liver: 15.1 cm in length. Normal size liver. Mild echotexture. Mild central intrahepatic duct dilatation. No hepatic mass identified. Portal Vein: Normal hepatopetal flow with monophasic waveform. Gallbladder: Normally distended gallbladder with several stones in shadowing. There is a small amount of pericholecystic fluid CBD: 1.1 cm Pancreas: Echogenic pancreas. Pancreatic duct is mildly prominent on the recent CT. Duct is not as well visualized by ultrasound. Right kidney: 9.9 cm in length. Normal size and echogenicity. No hydronephrosis or mass. Aorta and IVC: Unremarkable abdominal aorta and IVC. No ascites. US/US liver [id number] IMPRESSION: 1. Abnormal gallbladder. Cholelithiasis. No gallbladder hydrops. There is a sm all amount of pericholecystic fluid and edema. 2. Dilated common bile duct to 1.1 cm. No choledocholithiasis identified by hoang barahona. Evaluation of the distal common bile duct and pancreatic head recomme nded to exclude choledocholithiasis or pancreatic head lesion. 3. Mild intrahepatic duct dilatation.
--- NOTE | 2025-05-13 05:50 | PC.NURSE ---
Pt report called to Hawa Moses RN at [facility].
--- NOTE | 2025-05-13 07:21 | PC.NURSE ---
pt taken to MRI from ED by sleep lab technologist.
--- NOTE | 2025-05-13 08:35 | PC.NURSE ---
PT BACK FROM MRI.
--- NOTE | 2025-05-13 09:18 | PC.NURSE ---
PT UPDATE GIVEN TO DARREN AT [facility] IN [place].
[2025-05-13 09:36] LABS: Hematocrit 40.7 % (36-47); Hemoglobin 13.50 g/dL (11.27-16.99); Mean Corpuscular HGB Conc 33.2 g/dL (30-55); Mean Corpuscular Hemoglobin 31.8 pg (27-33); Mean Corpuscular Volume 96.0 fl (85-98); Nucleated Red Blood Cells % 0 %; Platelet Count 252 10^3/cmm (157-399); Red Blood Count 4.24 10^6/uL (3.85-5.65); White Blood Count 6.22 10^3/uL (3.29-11.43)
[2025-05-13] MEDS: metroNIDAZOLE IV 500 MG/100 ML PREMIX 100 MG IV (09:45)
[2025-05-13 09:53] LABS: Albumin Level 3.9 g/dL (3.5-5.2); Alkaline Phosphatase 184 U/L (35-105); Anion Gap 14.1 (5-19); Blood Urea Nitrogen 16 mg/dL (6-20); Calcium 9.0 mg/dL (8.5-10.5); Carbon Dioxide 28 mmol/L (22-29); Chloride 103 mmol/L (98-107); Creatinine Clr Calc Pharmacy 81.1288; Globulin 3.1 g/dL (1.3-4.6); Glucose 89 mg/dL (65-115); Osmolality Calculated 293 mOsm/kg (285-295); Potassium 4.1 mmol/L (3.5-5.1); Sodium 141 mmol/L (136-145); Total Protein 7.0 g/dL (6.6-8.7)
[2025-05-13 10:04] LABS: Alanine Aminotransferase 1019 U/L (0-33)
[2025-05-13 10:05] LABS: Aspartate Amino Transferase 1254 U/L (0-32); Lipase 866 U/L (13-60)
== END 2025-05-13 10:26 | disposition short-term general hospital (02) ==
PROVIDERS: Family Medicine; Physician Assistant; Emergency Provider Emergency Medicine; PCP Family Medicine
DX: K80.42 Calculus of bile duct with acute cholecystitis without obstruction (principal); R10.10 Upper abdominal pain, unspecified; K83.8 Other specified diseases of biliary tract; K86.89 Other specified diseases of pancreas; E78.5 Hyperlipidemia, unspecified; I10 Essential (primary) hypertension
CPT/HCPCS: 36415; 74177; 74181; 76705; 80053; 81001; 83690; 85025; 87040; 93005; 96374; 96375; 99285; J0744; J2270; J2405; J3490

== ENCOUNTER 2025-06-22 08:22 | Outpatient (CLI) | payer OTHER, SELFPAY ==
--- NOTE | 2025-06-22 08:29 | XR_ITS ---
WS: [id number] Right hip, 2 views, 06/22/2025 Clinical Data: acute right hip pain Comparison: None. Findings: No fractures or dislocations are seen. The right hip shows no erosion, sclerosis, narrowing, cyst formation or fragmentation of the right femoral head. There is a small acetabular lip. There are calcifications adjacent to the greater trochanter. The soft tissues are not remarkable. The adjacent pelvis is normal. XR/XR hip RT 2-3V wo/w pel* [id number] Impression: Minimal osteoarthritis of the right hip.
== END 2025-06-22 08:23 | disposition home or self-care (01) ==
LOC: RAD 08:25
PROVIDERS: PCP Family Medicine; Visit Provider Family Medicine
DX: M16.11 Unilateral primary osteoarthritis, right hip (principal); M24.851 Other specific joint derangements of right hip, not elsewhere classified; M61.411 Other calcification of muscle, right shoulder
CPT/HCPCS: 73502; 80053; 84439; 84443